=== PATIENT | male | born 1995 | race Caucasian/White ===

== ENCOUNTER 2018-02-10 14:02 | Day surgery (SDC) | payer OTHER ==
[~2018-02-10] VITALS: Ht 162.6 cm; Wt 80.4 kg
[~2018-02-10 14:02] MED LIST: ANUSOL HC,ANUCO25 MG PR
[2018-02-10 14:58] LABS: HEMATOCRIT 45.3 % (38.0-50.0); HEMOGLOBIN 16.7 G/DL (12.5-16.6); MCH 32.6 PG (29.0-34.0); MCHC 36.9 G/DL (30.0-36.0); MCV 88.3 FL (86-99); PLATELET COUNT 258 K/uL (156-360); RBC DIS.WIDTH-CV 11.8 % (11.8-14.6); RBC DIS.WIDTH-SD 37.7 % (39-53); RED BLOOD COUNT 5.13 M/uL (4.00-5.50); WHITE BLOOD COUNT 14.6 K/uL (4.1-10.2)
[2018-02-10 15:01] LABS: APPEARANCE CLEAR ((CLEAR)); BILIRUBIN NEGATIVE; BLOOD NEGATIVE; COLOR YELLOW ((YELLOW)); GLUCOSE (STRIP) NEGATIVE; KETONES 20; LEUKOCYTES NEGATIVE; NITRITE NEGATIVE; PROTEIN (STRIP) NEGATIVE; SPECIFIC GRAVITY 1.024 (1.000-1.030); UROBILINOGEN 0.2 MG/DL (0.2-1.0)
[2018-02-10 15:13] LABS: ALBUMIN 4.8 g/dL (3.2-4.8); CHLORIDE 102 mEq/L (99-109); POTASSIUM 3.5 mEq/L (3.7-5.4); SODIUM 137 mEq/L (136-147)
[2018-02-10 15:16] LABS: GLUCOSE 113 mg/dL (70-99); TOTAL PROTEIN 7.9 g/dL (6.4-8.3)
[2018-02-10 15:19] LABS: ALKALINE PHOSPHATASE 79 IU/L (3-129); GFR ESTIMATE (CALCULATED) > 59 mL/min/ (58.99-99999)
[2018-02-10 15:20] LABS: UREA NITROGEN (BUN) 14 mg/dL (9-23)
[2018-02-10 15:21] LABS: AST (GOT) 18 IU/L (2-34)
[2018-02-10 15:22] LABS: ALT (GPT) 35 IU/L (3-49)
[2018-02-10 15:23] LABS: LIPASE 25 U/L (1.0-51.0)
[2018-02-10 20:14] VITALS: BP 110/59
[2018-02-11 00:49] VITALS: BP 113/55
[2018-02-11 04:51] VITALS: BP 87/49
[2018-02-11 08:18] VITALS: BP 105/51
[2018-02-11 09:46] LABS: HEMATOCRIT 40.6 % (38.0-50.0); MCH 32.7 PG (29.0-34.0); MCV 90.8 FL (86-99); PLATELET COUNT 260 K/uL (156-360); RBC DIS.WIDTH-CV 12.1 % (11.8-14.6); RBC DIS.WIDTH-SD 39.9 % (39-53); RED BLOOD COUNT 4.47 M/uL (4.00-5.50); WHITE BLOOD COUNT 13.7 K/uL (4.1-10.2)
[2018-02-11 09:49] LABS: HEMOGLOBIN 14.6 G/DL (12.5-16.6)
[2018-02-11 10:04] LABS: CHLORIDE 102 MEQ/L (99-109); GFR ESTIMATE (CALCULATED) > 59 mL/min/ (58.99-99999); GLUCOSE 105 mg/dL (70-99); POTASSIUM 4.1 MEQ/L (3.7-5.4); SODIUM 137 MEQ/L (136-147); UREA NITROGEN (BUN) 13 mg/dL (9-23)
[2018-02-11 12:10] VITALS: BP 102/54
[2018-02-11] MEDS ORDERED: ENDOCET 5-3251 EACH PO (12:13)
== END 2018-02-11 12:45 | disposition home or self-care (01) ==
LOC: EME 14:02 → SDC 17:34 → 2SOUTH 18:04 → 2EAST 18:04 → 2SOUTH 18:04 → ENRESERV 19:05 → 2EAST 19:53
PROVIDERS: Physician Assistant; Physician Assistant Surgical
PROC: 0DTJ4ZZ Resection of Appendix, Percutaneous Endoscopic Approach (ICD-10-PCS; principal; 2018-02-10)
DX: K35.3 Acute appendicitis with localized peritonitis (principal)
CPT/HCPCS: 74177; 80048; 80053; 81003; 83690; 85027; 88304; G0378; J0330; J0780; J1100; J1170; J1885; J2250; J2405; J2710; J3010; J7040; J7050; J7120; J7643; S0020; S0074